=== PATIENT | female | born 1970 | race Caucasian/White ===

== ENCOUNTER 2023-09-29 08:53 | Outpatient (CLI) | payer MEDICAID ==
[~2023-09-29 08:53] MED LIST: AMLO5TAB95 PO; ATEN-236 PO; BACL10TA14; COL250C PO; GABA-532 PO; HYDR-3964 PO; SILD20TA14 PO; SIMV-42 PO
== END 2023-09-29 23:59 | disposition home or self-care (01) ==
LOC: RAD 08:53
PROVIDERS: ATTEND Nurse Practitioner Family
DX: K76.0 Fatty (change of) liver, not elsewhere classified (principal); I08.8 Other rheumatic multiple valve diseases; R14.0 Abdominal distension (gaseous); R01.1 Cardiac murmur, unspecified; I31.39 Other pericardial effusion (noninflammatory); N28.1 Cyst of kidney, acquired
CPT/HCPCS: 76700; 93306